=== PATIENT | female | born 1930 | race Caucasian/White ===

== ENCOUNTER 2017-12-15 14:03 | Emergency (ER) | payer MEDICARE, BC ==
[2017-12-15 14:17] VITALS: BP 149/69
--- NOTE | 2017-12-15 14:21 | UC ---
Complaint Female HPI - HPI Summary HPI Summary: 86 yo female presents with dysuria. She tells me that 3 days ago she developed bladder discomfort when urinating. Also notes frequency and urgency over the last 3 days. She has had many UTIs in the past and says this feels the same. Denies fever, chills, abdominal pain, n/v, hematuria, flank pain, vaginal bleeding or discharge. Last BM was this morning and normal for her. Has a f/u with her PCP in 2 days. - History Of Current Complaint Chief Complaint: UCGU Stated Complaint: UTI Time Seen by Provider: 12/15/17 14:21 Hx Obtained From: Patient Hx Last Menstrual Period: post menopause Onset/Duration: Sudden Onset, Gradual Onset Severity Initially: Mild Severity Currently: Mild Pain Intensity: 3 Pain Scale Used: 0-10 Numeric - Allergies/Home Medications Allergies/Adverse Reactions: Allergies Allergy/AdvReac Type Severity Reaction Status Date / Time penicillin G Allergy Unknown Hives Verified 11/27/17 15:22 PMH/Surg Hx/FS Hx/Imm Hx Endocrine History: Dyslipidemia Cardiovascular History: Hypertension - Surgical History Surgical History: Yes Surgery Procedure, Year, and Place: oophorectomy (). Breast surgery left ( ). Hysterectomy and appendectomy (). Intestinal obstruction (, ) - Family History Known Family History: Positive: Other - Mother of CHF. Fathe of stroke. - Social History Occupation: Retired Lives: With Family Alcohol Use: None Alcohol Amount: Glass of wine Substance Use Type: None Smoking Status (MU): Never Smoked Tobacco - Immunization History Most Recent Influenza Vaccination: 2016 Most Recent Pneumonia Vaccination: 1996 Review of Systems Constitutional: Negative Skin: Negative Respiratory: Negative Cardiovascular: Negative Gastrointestinal: Negative Genitourinary: Dysuria, Frequency, Urgency Neurovascular: Negative Neurological: Negative Psychological: Negative All Other Systems Reviewed And Are Negative: Yes Physical Exam - Summary Physical Exam Summary: GENERAL: NAD. WDWN. No pain distress. SKIN: No rashes, sores, lesions, or open wounds. NECK: Supple. Nontender. No lymphadenopathy. CHEST: CTAB. No r/r/w. No accessory muscle use. Breathing comfortably and in no distress. CV: RRR. Without m/r/g. Pulses intact. Cap refill <2seconds ABDOMEN: Soft. NTTP. No distention or guarding. No CVA tenderness. Bowel sounds present NEURO: Alert. CN II-XII grossly intact. PSYCH: Age appropriate behavior. Triage Information Reviewed: Yes Vital Signs: Initial Vital Signs Temp 98.1 F 12/15/17 14:11 Pulse 77 12/15/17 14:11 Resp 18 12/15/17 14:11 BP 149/69 12/15/17 14:11 Pulse Ox 98 12/15/17 14:11 Laboratory Tests 12/15/17 14:28 POC Urine Color Yellow POC Urine Clarity Clear POC Urine pH 5.0 POC Ur Specif [place] 1.020 POC Urine Protein Negative POC Ur Glucose (UA) Negative POC Urine Ketones Negative POC Urine Blood Trace-intact A POC Urine Nitrite Negative POC Urine Bilirubin Negative POC Urine Urobilinogen 0.2 POC U Leukocyte Esteras Negative Vital Signs Reviewed: Yes Complaint Female Dx - Course Course Of Treatment: UA with no sign of infection. Will treat symptomatically and based on her hx of UTIs. Urine culture sent. She will f/u with her PCP in 2 days for recheck. - Differential Dx/Diagnosis Provider Diagnoses: Dysuria Discharge - Sign-Out/Discharge Documenting (check all that apply): Patient Departure All imaging exams completed and their final reports reviewed: No Studies - Discharge Plan Condition: Stable Disposition: HOME Prescriptions: Cephalexin CAP* [Keflex CAP*] 500 mg PO BID #10 cap Patient Education Materials: Dysuria (ED) Referrals: Jorge Sandra MD [Primary Care Provider] - Additional Instructions: If you develop a fever, shortness of breath, chest pain, new or worsening symptoms - please call your PCP or go to the ED. Your blood pressure was mildly elevated at todays visit. Please see your primary provider within 4 weeks for recheck and re-evaluation. 1) Please keep your follow up with your PCP on 12/17 if your symptoms persist - Billing Disposition and Condition Condition: STABLE Disposition: Home
== END 2017-12-15 15:00 | disposition home or self-care (01) ==
LOC: UCEAST 14:03
DX: R30.0 Dysuria (principal)
CPT/HCPCS: 81003; 87086; 99212; G0463

== ENCOUNTER 2018-10-23 13:35 | Emergency (ER) | payer MEDICARE, OTHER ==
[2018-10-23 13:54] VITALS: BP 147/77
--- NOTE | 2018-10-23 14:06 | UC ---
Complaint Female HPI - HPI Summary HPI Summary: 79-year-old woman comes in with a chief complaint of increased urinary frequency and burning with urination for 2 days. It's worse when she urinates it's less when she does not. No fevers or chills. She is here with her daughter says the patient does appear slow or require than usual. No other source of infection no chest congestion. Patient does report some lower abdominal discomfort when she urinates. Also reports some bilateral hip discomfort. - History Of Current Complaint Chief Complaint: UCGU Stated Complaint: URINARY ISSUE Time Seen by Provider: 10/23/18 13:43 Hx Last Menstrual Period: post menopause Pain Intensity: 7 - Allergies/Home Medications Allergies/Adverse Reactions: Allergies Allergy/AdvReac Type Severity Reaction Status Date / Time penicillin G Allergy Unknown Hives Verified 10/23/18 13:54 PMH/Surg Hx/FS Hx/Imm Hx Previously Healthy: Yes - DEMENTIA Cardiovascular History: Hypertension - Surgical History Surgical History: Yes Surgery Procedure, Year, and Place: oophorectomy (). Breast surgery left ( ). Hysterectomy and appendectomy (). Intestinal obstruction (, ) - Family History Known Family History: Positive: Other - Mother of CHF. Fathe of stroke. - Social History Alcohol Use: Occasionally Alcohol Amount: wine every other day Substance Use Type: None Smoking Status (MU): Never Smoked Tobacco - Immunization History Most Recent Influenza Vaccination: 2016 Most Recent Pneumonia Vaccination: 1995 Review of Systems All Other Systems Reviewed And Are Negative: Yes Constitutional: Positive: Negative Skin: Positive: Negative Eyes: Positive: Negative ENT: Positive: Negative Respiratory: Positive: Negative Cardiovascular: Positive: Negative Gastrointestinal: Positive: Other - SEE HPI Genitourinary: Positive: Dysuria, Frequency, Urgency Motor: Positive: Negative Neurovascular: Positive: Negative Musculoskeletal: Positive: Negative Neurological: Positive: Negative Psychological: Positive: Negative Is Patient Immunocompromised?: No Physical Exam Triage Information Reviewed: Yes Appearance: Well-Appearing, No Pain Distress, Well-Nourished Vital Signs: Initial Vital Signs Temp 98 F 10/23/18 13:52 Pulse 73 10/23/18 13:52 Resp 16 10/23/18 13:52 BP 147/77 10/23/18 13:52 Pulse Ox 99 10/23/18 13:52 Vital Signs Reviewed: Yes Eye Exam: Normal Eyes: Positive: Conjunctiva Clear Neck: Positive: Supple Respiratory: Positive: No respiratory distress Abdomen Description: Positive: Nontender, Soft. Negative: CVA Tenderness (R), CVA Tenderness (L) Bowel Sounds: Positive: Present Musculoskeletal: Positive: Strength Intact, ROM Intact Neurological: Positive: Alert, Muscle Tone Normal Psychological: Positive: Age Appropriate Behavior Skin Exam: Normal Complaint Female Dx - Differential Dx/Diagnosis Provider Diagnosis: UTI (urinary tract infection) Discharge - Sign-Out/Discharge Documenting (check all that apply): Patient Departure All imaging exams completed and their final reports reviewed: No Studies - Discharge Plan Condition: Stable Disposition: HOME Prescriptions: Sulfamethox/Trimethoprim DS* [Bactrim DS 800/160 TAB*] 1 tab PO BID #14 tab Patient Education Materials: Urinary Tract Infection in Women (ED) Referrals: Jorge Sandra MD [Primary Care Provider] - Additional Instructions: FOLLOW UP WITH YOUR DOCTOR IF NOT COMPLETELY IMPROVED. GO TO THE EMERGENCY DEPARTMENT IF YOUR CONDITION WORSENS; FEVER, PAIN, YOU FEEL ILL OR ANY QUESTIONS OR CONCERNS. - Billing Disposition and Condition Condition: STABLE Disposition: Home
== END 2018-10-23 14:12 | disposition home or self-care (01) ==
LOC: UCEAST 13:35
DX: N39.0 Urinary tract infection, site not specified (principal); I10 Essential (primary) hypertension; F03.90 Unspecified dementia, unspecified severity, without behavioral disturbance, psychotic disturbance, mood disturbance, and anxiety
CPT/HCPCS: 81003; 87086; 99212; G0463